=== PATIENT | male | born 1945 | race American Indian/Alaskan Native ===

== ENCOUNTER 2016-11-25 10:39 | Outpatient (CLI) | payer MEDICARE ==
[2016-11-25] MEDS ORDERED: XYLOCAINE TOPICAL 4% TP ONE (15:49)
== END 2016-11-25 10:40 | disposition home or self-care (01) ==
LOC: WOUND 10:39
PROVIDERS: ATTEND Orthopaedic Surgery
DX: I87.311 Chronic venous hypertension (idiopathic) with ulcer of right lower extremity (principal); L97.811 Non-pressure chronic ulcer of other part of right lower leg limited to breakdown of skin; I10 Essential (primary) hypertension; K21.9 Gastro-esophageal reflux disease without esophagitis; M19.90 Unspecified osteoarthritis, unspecified site; Z86.73 Personal history of transient ischemic attack (TIA), and cerebral infarction without residual deficits; Z87.891 Personal history of nicotine dependence
CPT/HCPCS: 99212; G0463

== ENCOUNTER 2016-12-02 11:06 | Outpatient (CLI) | payer MEDICARE | END 2016-12-02 11:07 | disposition home or self-care (01) | LOC: WOUND 11:06 | PROVIDERS: ATTEND Orthopaedic Surgery | DX: I87.311 Chronic venous hypertension (idiopathic) with ulcer of right lower extremity (principal); L97.811 Non-pressure chronic ulcer of other part of right lower leg limited to breakdown of skin; K21.9 Gastro-esophageal reflux disease without esophagitis; M19.90 Unspecified osteoarthritis, unspecified site; Z86.73 Personal history of transient ischemic attack (TIA), and cerebral infarction without residual deficits; Z87.891 Personal history of nicotine dependence ==

== ENCOUNTER 2016-12-10 11:11 | Outpatient (CLI) | payer MEDICARE ==
[2016-12-10] MEDS ORDERED: XYLOCAINE TOPICAL 2% TP ONE ×2 (11:32→14:36)
== END 2016-12-10 11:12 | disposition home or self-care (01) ==
LOC: WOUND 11:11
PROVIDERS: ATTEND Podiatrist
DX: I87.311 Chronic venous hypertension (idiopathic) with ulcer of right lower extremity (principal); L97.912 Non-pressure chronic ulcer of unspecified part of right lower leg with fat layer exposed; G60.9 Hereditary and idiopathic neuropathy, unspecified; B35.1 Tinea unguium; I10 Essential (primary) hypertension; M19.90 Unspecified osteoarthritis, unspecified site; K21.9 Gastro-esophageal reflux disease without esophagitis; Z86.73 Personal history of transient ischemic attack (TIA), and cerebral infarction without residual deficits; Z87.891 Personal history of nicotine dependence
CPT/HCPCS: 29580

== ENCOUNTER 2016-12-16 10:13 | Outpatient (CLI) | payer MEDICARE ==
[2016-12-16] MEDS ORDERED: XYLOCAINE TOPICAL 2% TP ONE ×2 (10:16→11:21)
== END 2016-12-16 10:14 | disposition home or self-care (01) ==
LOC: WOUND 10:13
PROVIDERS: ATTEND Orthopaedic Surgery
DX: I87.311 Chronic venous hypertension (idiopathic) with ulcer of right lower extremity (principal); L97.912 Non-pressure chronic ulcer of unspecified part of right lower leg with fat layer exposed; G60.9 Hereditary and idiopathic neuropathy, unspecified; B35.1 Tinea unguium; K21.9 Gastro-esophageal reflux disease without esophagitis; M19.90 Unspecified osteoarthritis, unspecified site; Z86.73 Personal history of transient ischemic attack (TIA), and cerebral infarction without residual deficits; Z87.891 Personal history of nicotine dependence

== ENCOUNTER 2016-12-23 09:43 | Outpatient (CLI) | payer MEDICARE ==
[2016-12-23] MEDS ORDERED: XYLOCAINE TOPICAL 2% ONE (10:03)
[2016-12-23] MEDS ORDERED: XYLOCAINE TOPICAL 2% TP ONE (14:30)
== END 2016-12-23 09:44 | disposition home or self-care (01) ==
LOC: WOUND 09:43
PROVIDERS: ATTEND Internal Medicine
DX: I87.311 Chronic venous hypertension (idiopathic) with ulcer of right lower extremity (principal); L97.811 Non-pressure chronic ulcer of other part of right lower leg limited to breakdown of skin; G60.9 Hereditary and idiopathic neuropathy, unspecified; B35.1 Tinea unguium; G35 Multiple sclerosis; G40.89 Other seizures; I10 Essential (primary) hypertension; M19.90 Unspecified osteoarthritis, unspecified site; K21.9 Gastro-esophageal reflux disease without esophagitis; Z86.73 Personal history of transient ischemic attack (TIA), and cerebral infarction without residual deficits; Z87.891 Personal history of nicotine dependence

== ENCOUNTER 2016-12-27 11:14 | Outpatient (CLI) | payer MEDICARE ==
[2016-12-27] MEDS ORDERED: XYLOCAINE TOPICAL 2% TP ONE ×2 (11:44→11:54)
== END 2016-12-27 11:15 | disposition home or self-care (01) ==
LOC: WOUND 11:14
PROVIDERS: ATTEND Internal Medicine
DX: I87.311 Chronic venous hypertension (idiopathic) with ulcer of right lower extremity (principal); L97.811 Non-pressure chronic ulcer of other part of right lower leg limited to breakdown of skin; G60.9 Hereditary and idiopathic neuropathy, unspecified; B35.1 Tinea unguium; Z87.891 Personal history of nicotine dependence
CPT/HCPCS: 87075; 87076; 87116; 87186

== ENCOUNTER 2016-12-31 06:53 | Day surgery (SDC) | payer MEDICARE ==
[~2016-12-31 06:53] MED LIST: NACL 0.9% 1000 ML 1,000 ML IV SCH; VANCOMYCIN/NS 1 GM/250 ML 1 GM/250 ML BAG IV NR
[2016-12-31 07:53] LABS: Basophils % (Auto) 0.9 % (0.0-1.8); Eosinophils % (Auto) 5.8 % (0.0-4.3); Hematocrit 39.3 % (35.5-45.6); Hemoglobin 12.7 gm/dl (11.8-15.2); Mean Corpuscular HGB Conc 32 % (32-34); Mean Corpuscular Hemoglobin 29 pg (28-32); Mean Corpuscular Volume 89 fl (84-94); Platelet Count 311 K/mm3 (140-440); Red Blood Count 4.43 M/mm3 (3.65-5.03); Red Cell Distribution Width 17.4 % (13.2-15.2); White Blood Count 6.2 K/mm3 (4.5-11.0)
[2016-12-31 08:02] LABS: Anion Gap 19 mmol/L; Blood Urea Nitrogen 15 mg/dL (9-20); Calcium 9.1 mg/dL (8.4-10.2); Carbon Dioxide 24 mmol/L (22-30); Chloride 102.5 mmol/L (98-107); Glucose 114 mg/dL (75-100); Potassium 4.1 mmol/L (3.6-5.0); Sodium 141 mmol/L (137-145)
[2016-12-31 08:03] LABS: Partial Thromboplastin Time 23.4 Sec. (24.2-36.6)
[2016-12-31] MEDS ORDERED: HEPARIN 10,000 UNITS/10 ML ONE (08:04)
[2016-12-31] MEDS ORDERED: HEPARIN/NS 5000 UNIT/500ML(CATH LAB) 1,000 ML IR ONE (08:05)
[2016-12-31] MEDS: VERSED ONE ×2 (08:43→09:41)
[2016-12-31] MEDS: SUBLIMAZE ONE ×4 (08:43→10:01)
[2016-12-31] MEDS: XYLOCAINE 2% INFILTRATI ONE ×2 (08:45→08:50)
[2016-12-31] MEDS ORDERED: XYLOCAINE 2% INFILTRATI ONE (08:50)
[2016-12-31] MEDS ORDERED: HEPARIN/NS 5000 UNIT/500ML(CATH LAB) 500 ML IR ONE (09:08)
--- NOTE | 2016-12-31 10:28 | Operative Report ---
Operative Report Operative Report: Date of procedure: 12/31/2016 Pre-operative diagnosis: Acute deep venous thrombosis in the right common femoral vein/chronic right leg swelling. Post-operative diagnosis: Same Procedure name(s): 1. Ultrasound-guided access of the right femoral vein. 2. Right lower extremity venogram. 3. IVC filter placement. 4. Intravascular interrogation of the right femoral, common femoral external iliac, common iliac veins. 5. Percutaneous mechanical thrombectomy of the right common femoral and iliac veins using a 8 Vietnamese AngioJet catheter. 6. Balloon angioplasty and stent of the right common iliac vein using 16 x 60 wall stent followed by 16 x 60 balloon. 7. Balloon angioplasty of the external iliac and common femoral veins was a 16 x 60 and 12 by 40 balloon respectively. 8. Radiologic supervision and interpretation. Surgeon: Nickolas Guardado MD, RPVI Budget Analyst: None Anesthesia: Local with IV sedation Findings 1. Acute DVT in the right common femoral and external iliac veins. 2. Partially occluded right external iliac vein stent. 3. 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 4. Resolution of all stenosis in the occlusions at the end of the procedure. 5. IVC filter placement above the iliac confluence and below the renal veins. Specimens: None EBL: Minimal IV fluids: 200 cc Urine output: None Disposition: The recovery Indications: Acute right lower extremity DVT/chronic venous insufficiency. Procedure: Patient was brought to the Production Crew Supervisor and laid on the table in supine position. Bilateral groin and right thigh was prepped and draped in usual sterile fashion. Under ultrasound guidance the right femoral vein was accessed using the micropuncture needle. The micropuncture wire was advanced without resistance. The micropuncture sheath was inserted. The wire was exchanged to a Vargas wire. In the micropuncture sheath was exchanged for an 8 Vietnamese sheath. The wire was directed into the IVC using a angled catheter. They catheter was advanced above the iliac confluence. The venogram confirmed the patent IVC and marked both renal veins. The catheter and sheath were removed and the IVC filter sheath was placed right below the renal veins. The filter was deployed in usual fashion. It was deployed below the renal veins. The filter sheath was removed and a 10 Vietnamese sheath was placed. Patient received 3000 units of heparin. The 8 Vietnamese AngioJet was used to perform the thrombectomy. After the thrombectomy and intravascular ultrasound catheter was placed and it showed no residual clot however there was significant stenosis of both common femoral and common iliac veins. The previously placed stent was widely patent. The common iliac vein was ballooned with a 16 x 60 angioplasty balloon. It was followed by placing 16 by 60 Wall stent in the common iliac vein and post dilated by 18 x 60 balloon. Common femoral and femoral veins were ballooned dilated by 12 x 40 balloon. The resulting venogram showed complete resolution of all the clot, stenosis and occlusions. There was excellent flow through the right side venous system. The sheath was removed and manual pressure was held. Patient tolerated procedure well.
[2016-12-31] MEDS ORDERED: NORCO 5/325 ONE (10:38)
--- NOTE | 2016-12-31 10:39 | Short Stay Summary ---
Short Stay Documentation - History H&P: obtained from office - Allergies and Medications Current Medications: Allergies Penicillins Allergy (Verified 12/14/13 15:58) Itching Home Medications Medication Instructions Recorded Confirmed Last Taken Type Atenolol [Tenormin] 25 mg PO BID 10/14/13 12/31/16 12/31/16 History Gabapentin [Neurontin] 300 mg PO HS 10/14/13 12/31/16 12/30/16 History Simvastatin [Zocor TAB] 40 mg PO QHS 10/14/13 12/31/16 12/30/16 History amLODIPine [Norvasc] 10 mg PO DAILY 10/14/13 12/31/16 12/31/16 History levETIRAcetam [Keppra TAB] 1,000 mg PO BID 10/14/13 12/31/16 12/30/16 History traZODone [Desyrel] 50 mg PO QHS 10/14/13 12/31/16 12/30/16 History Baclofen [Baclofen] 10 mg PO QID 06/21/14 12/31/16 12/30/16 History Dimethyl Fumarate [Tecfidera] 240 mg PO BID 12/31/16 12/31/16 12/30/16 History Methylprednisolone AC, Micro 1,000 gm MC QMONTH 12/31/16 12/31/16 1 Month Ago History [methylPREDNISolone AC Micro] Pantoprazole [Protonix] 40 mg PO QAM 12/31/16 12/31/16 12/30/16 History Active Medications Sodium Chloride (Nacl 0.9% 1000 Ml) 1,000 mls @ 42 mls/hr IV DIRECT ZOE Last Admin: 12/31/16 07:30 Dose: 42 mls/hr Vancomycin HCl (Vancomycin/Ns 1 Gm/250 Ml) 1 gm in 250 mls @ 167.007 mls/hr IV PREOP NR PRN Reason: Protocol Stop: 12/31/16 23:59 Last Admin: 12/31/16 07:58 Dose: 167.007 mls/hr Rivaroxaban (Xarelto) 15 mg PO ONCE ONE PRN Reason: Protocol Stop: 12/31/16 11:01 - Brief post op/procedure progress note Findings: Pre-operative diagnosis: Acute deep venous thrombosis in the right common femoral vein/chronic right leg swelling. Post-operative diagnosis: Same Procedure name(s): 1. Ultrasound-guided access of the right femoral vein. 2. Right lower extremity venogram. 3. IVC filter placement. 4. Intravascular interrogation of the right femoral, common femoral external iliac, common iliac veins. 5. Percutaneous mechanical thrombectomy of the right common femoral and iliac veins using a 8 Palestinian AngioJet catheter. 6. Balloon angioplasty and stent of the right common iliac vein using 16 x 60 wall stent followed by 16 x 60 balloon. 7. Balloon angioplasty of the external iliac and common femoral veins was a 16 x 60 and 12 by 40 balloon respectively. 8. Radiologic supervision and interpretation. Surgeon: Nickolas Guardado MD, RPVI Remote Control Assembler: None Anesthesia: Local with IV sedation Findings 1. Acute DVT in the right common femoral and external iliac veins. 2. Partially occluded right external iliac vein stent. 3. 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 4. Resolution of all stenosis in the occlusions at the end of the procedure. 5. IVC filter placement above the iliac confluence and below the renal veins. Specimens: None EBL: Minimal IV fluids: 200 cc Urine output: None Disposition: The recovery - Disposition Condition at discharge: Good Disposition: DISCHARGED TO HOME OR SELFCARE Short Stay Discharge Plan Activity: advance as tolerated Weight Bearing Status: Full Weight Bearing Diet: regular Wound: open to air, per wound nurse instructions Additional Instructions: Follow up with Dr Guardado in 2 weeks Follow up with: KIRAN RESTREPO MD, PHD [Primary Care Provider] - 7 Days Prescriptions: oxyCODONE /ACETAMINOPHEN [Percocet 5/325] 1 tab PO Q4HR #40 tab Rivaroxaban [Xarelto Starter Pack] 1 each PO BID #1 tab.[id number] Rivaroxaban [Xarelto] 20 mg PO QDAY #30 tab
[2016-12-31] MEDS ORDERED: NORCO 5/325 PO ONE (10:46)
[2016-12-31] MEDS ORDERED: XARELTO PO ONE (11:00)
[2016-12-31] MEDS ORDERED: NACL 0.9% 1000 ML 1,000 ML IV SCH (11:00)
[2016-12-31 12:59] VITALS: BP 151/106
--- NOTE | 2017-01-05 11:42 | Vascular Lab Report ---
MISCELLANEOUS VESSEL IDENTIFICATION: COMMENTS ON THE SCAN: The right femoral vein was identified and under real-time ultrasound guidance was cannulated. IMPRESSION: Successful ultrasound guided vein cannulation.
== END 2016-12-31 13:30 | disposition home or self-care (01) ==
LOC: OPU 06:53
PROVIDERS: ATTEND Surgery Vascular Surgery
DX: I82.411 Acute embolism and thrombosis of right femoral vein (principal); I82.421 Acute embolism and thrombosis of right iliac vein; I10 Essential (primary) hypertension; K21.9 Gastro-esophageal reflux disease without esophagitis; E78.00 Pure hypercholesterolemia, unspecified; F17.210 Nicotine dependence, cigarettes, uncomplicated; F03.90 Unspecified dementia, unspecified severity, without behavioral disturbance, psychotic disturbance, mood disturbance, and anxiety; Z98.890 Other specified postprocedural states; Z80.9 Family history of malignant neoplasm, unspecified; Z83.3 Family history of diabetes mellitus
CPT/HCPCS: 36415; 37187; 37191; 37238; 37248; 37249; 37252; 37253; 75820; 76937; 80048; 85025; 85384; 85610; 85730; 96365; C1725; C1751; C1753; C1769; C1876; C1880; C1894; J1644; J2250; J3010; J3370; J7030; Q9967

== ENCOUNTER 2017-01-03 10:04 | Outpatient (CLI) | payer MEDICARE ==
[2017-01-03] MEDS ORDERED: XYLOCAINE TOPICAL 4% TP ONE ×2 (11:26→11:43)
== END 2017-01-03 10:05 | disposition home or self-care (01) ==
LOC: WOUND 10:04
PROVIDERS: ATTEND Internal Medicine
DX: I87.311 Chronic venous hypertension (idiopathic) with ulcer of right lower extremity (principal); L97.812 Non-pressure chronic ulcer of other part of right lower leg with fat layer exposed; G60.9 Hereditary and idiopathic neuropathy, unspecified; B35.1 Tinea unguium; G35 Multiple sclerosis; G40.89 Other seizures; I82.401 Acute embolism and thrombosis of unspecified deep veins of right lower extremity; K21.9 Gastro-esophageal reflux disease without esophagitis; Z86.718 Personal history of other venous thrombosis and embolism; Z87.891 Personal history of nicotine dependence

== ENCOUNTER 2017-01-10 10:12 | Outpatient (CLI) | payer MEDICARE ==
[2017-01-10] MEDS ORDERED: XYLOCAINE TOPICAL 4% TP ONE ×2 (10:43→11:13)
== END 2017-01-10 10:13 | disposition home or self-care (01) ==
LOC: WOUND 10:12
PROVIDERS: ATTEND Internal Medicine
DX: I87.311 Chronic venous hypertension (idiopathic) with ulcer of right lower extremity (principal); L97.912 Non-pressure chronic ulcer of unspecified part of right lower leg with fat layer exposed; G60.9 Hereditary and idiopathic neuropathy, unspecified; I82.401 Acute embolism and thrombosis of unspecified deep veins of right lower extremity; G35 Multiple sclerosis; M19.90 Unspecified osteoarthritis, unspecified site; K21.9 Gastro-esophageal reflux disease without esophagitis; Z86.73 Personal history of transient ischemic attack (TIA), and cerebral infarction without residual deficits; Z86.718 Personal history of other venous thrombosis and embolism; Z87.891 Personal history of nicotine dependence
CPT/HCPCS: 11055

== ENCOUNTER 2017-01-17 10:09 | Outpatient (CLI) | payer MEDICARE ==
[2017-01-17] MEDS ORDERED: XYLOCAINE TOPICAL 4% TP ONE ×2 (11:02→11:27)
== END 2017-01-17 10:10 | disposition home or self-care (01) ==
LOC: WOUND 10:09
PROVIDERS: ATTEND Internal Medicine
DX: I87.311 Chronic venous hypertension (idiopathic) with ulcer of right lower extremity (principal); L97.812 Non-pressure chronic ulcer of other part of right lower leg with fat layer exposed; B35.1 Tinea unguium; I10 Essential (primary) hypertension; M19.90 Unspecified osteoarthritis, unspecified site; K21.9 Gastro-esophageal reflux disease without esophagitis; G30.9 Alzheimer's disease, unspecified; G40.909 Epilepsy, unspecified, not intractable, without status epilepticus; Z86.718 Personal history of other venous thrombosis and embolism; Z86.73 Personal history of transient ischemic attack (TIA), and cerebral infarction without residual deficits; Z87.891 Personal history of nicotine dependence
CPT/HCPCS: 29581

== ENCOUNTER 2017-01-31 10:40 | Outpatient (CLI) | payer MEDICARE ==
[2017-01-31] MEDS ORDERED: XYLOCAINE TOPICAL 4% TP ONE ×2 (10:43→11:19)
== END 2017-01-31 10:41 | disposition home or self-care (01) ==
LOC: WOUND 10:40
PROVIDERS: ATTEND Internal Medicine
DX: I87.311 Chronic venous hypertension (idiopathic) with ulcer of right lower extremity (principal); L97.811 Non-pressure chronic ulcer of other part of right lower leg limited to breakdown of skin; I82.401 Acute embolism and thrombosis of unspecified deep veins of right lower extremity; G60.9 Hereditary and idiopathic neuropathy, unspecified; B35.1 Tinea unguium; G35 Multiple sclerosis; G40.89 Other seizures; M19.90 Unspecified osteoarthritis, unspecified site; K21.9 Gastro-esophageal reflux disease without esophagitis; Z86.73 Personal history of transient ischemic attack (TIA), and cerebral infarction without residual deficits; Z86.718 Personal history of other venous thrombosis and embolism; Z87.891 Personal history of nicotine dependence
CPT/HCPCS: 29581

== ENCOUNTER 2017-02-02 13:05 | Outpatient (CLI) | payer MEDICARE | END 2017-02-02 13:06 | disposition home or self-care (01) | LOC: WOUND 13:05 | PROVIDERS: ATTEND Internal Medicine | DX: I87.311 Chronic venous hypertension (idiopathic) with ulcer of right lower extremity (principal); L97.811 Non-pressure chronic ulcer of other part of right lower leg limited to breakdown of skin; G60.9 Hereditary and idiopathic neuropathy, unspecified; B35.1 Tinea unguium; I10 Essential (primary) hypertension; K21.9 Gastro-esophageal reflux disease without esophagitis; Z86.73 Personal history of transient ischemic attack (TIA), and cerebral infarction without residual deficits; Z86.718 Personal history of other venous thrombosis and embolism; Z87.891 Personal history of nicotine dependence | CPT/HCPCS: 29581; G0463; 99215 ==

== ENCOUNTER 2017-02-07 10:41 | Outpatient (CLI) | payer MEDICARE ==
[2017-02-07] MEDS ORDERED: XYLOCAINE TOPICAL 4% TP ONE ×2 (11:20→15:27)
== END 2017-02-07 10:42 | disposition home or self-care (01) ==
LOC: WOUND 10:41
PROVIDERS: ATTEND Internal Medicine
DX: I87.311 Chronic venous hypertension (idiopathic) with ulcer of right lower extremity (principal); L97.812 Non-pressure chronic ulcer of other part of right lower leg with fat layer exposed; G60.9 Hereditary and idiopathic neuropathy, unspecified; B35.1 Tinea unguium; G35 Multiple sclerosis; M19.90 Unspecified osteoarthritis, unspecified site; K21.9 Gastro-esophageal reflux disease without esophagitis; G30.9 Alzheimer's disease, unspecified; G40.909 Epilepsy, unspecified, not intractable, without status epilepticus; Z86.73 Personal history of transient ischemic attack (TIA), and cerebral infarction without residual deficits; Z86.718 Personal history of other venous thrombosis and embolism; Z87.891 Personal history of nicotine dependence
CPT/HCPCS: C5271; Q4102; 29581

== ENCOUNTER 2017-02-16 11:29 | Outpatient (CLI) | payer MEDICARE | END 2017-02-16 11:30 | disposition home or self-care (01) | LOC: WOUND 11:29 | PROVIDERS: ATTEND Podiatrist | DX: I87.311 Chronic venous hypertension (idiopathic) with ulcer of right lower extremity (principal); L97.912 Non-pressure chronic ulcer of unspecified part of right lower leg with fat layer exposed; G60.9 Hereditary and idiopathic neuropathy, unspecified; B35.1 Tinea unguium; M19.90 Unspecified osteoarthritis, unspecified site; K21.9 Gastro-esophageal reflux disease without esophagitis; Z86.73 Personal history of transient ischemic attack (TIA), and cerebral infarction without residual deficits; G30.9 Alzheimer's disease, unspecified; F02.80 Dementia in other diseases classified elsewhere, unspecified severity, without behavioral disturbance, psychotic disturbance, mood disturbance, and anxiety; G40.909 Epilepsy, unspecified, not intractable, without status epilepticus; Z86.718 Personal history of other venous thrombosis and embolism; Z87.891 Personal history of nicotine dependence | CPT/HCPCS: 29581; G0463; 99213 ==

== ENCOUNTER 2017-02-21 11:01 | Outpatient (CLI) | payer MEDICARE ==
[~2017-02-21 11:01] MED LIST changes: -NACL 0.9% 1000 ML 1,000 ML IV SCH; -VANCOMYCIN/NS 1 GM/250 ML 1 GM/250 ML BAG IV NR; +XYLOCAINE TOPICAL 2% ONE
[2017-02-21] MEDS ORDERED: XYLOCAINE TOPICAL 2% TP ONE (11:17)
== END 2017-02-21 11:02 | disposition home or self-care (01) ==
LOC: WOUND 11:01
PROVIDERS: ATTEND Internal Medicine
DX: I87.311 Chronic venous hypertension (idiopathic) with ulcer of right lower extremity (principal); L97.812 Non-pressure chronic ulcer of other part of right lower leg with fat layer exposed; G60.9 Hereditary and idiopathic neuropathy, unspecified; B35.1 Tinea unguium; G35 Multiple sclerosis; G40.89 Other seizures; I82.401 Acute embolism and thrombosis of unspecified deep veins of right lower extremity; I10 Essential (primary) hypertension; M19.90 Unspecified osteoarthritis, unspecified site; K21.9 Gastro-esophageal reflux disease without esophagitis; G30.9 Alzheimer's disease, unspecified; F02.80 Dementia in other diseases classified elsewhere, unspecified severity, without behavioral disturbance, psychotic disturbance, mood disturbance, and anxiety; Z86.718 Personal history of other venous thrombosis and embolism; Z86.73 Personal history of transient ischemic attack (TIA), and cerebral infarction without residual deficits; Z87.891 Personal history of nicotine dependence
CPT/HCPCS: C5271; Q4102; 29580

== ENCOUNTER 2017-02-28 10:49 | Outpatient (CLI) | payer MEDICARE ==
[2017-02-28] MEDS ORDERED: XYLOCAINE TOPICAL 2% ONE (11:14)
[2017-02-28] MEDS ORDERED: XYLOCAINE TOPICAL 2% TP ONE (11:42)
== END 2017-02-28 10:50 | disposition home or self-care (01) ==
LOC: WOUND 10:49
PROVIDERS: ATTEND Internal Medicine
DX: I87.311 Chronic venous hypertension (idiopathic) with ulcer of right lower extremity (principal); L97.812 Non-pressure chronic ulcer of other part of right lower leg with fat layer exposed; B35.1 Tinea unguium; G60.9 Hereditary and idiopathic neuropathy, unspecified; G35 Multiple sclerosis; M19.90 Unspecified osteoarthritis, unspecified site; K21.9 Gastro-esophageal reflux disease without esophagitis; G30.9 Alzheimer's disease, unspecified; G40.909 Epilepsy, unspecified, not intractable, without status epilepticus; Z86.73 Personal history of transient ischemic attack (TIA), and cerebral infarction without residual deficits; Z86.718 Personal history of other venous thrombosis and embolism; Z87.891 Personal history of nicotine dependence
CPT/HCPCS: C5271; Q4102

== ENCOUNTER 2017-03-07 10:38 | Outpatient (CLI) | payer MEDICARE ==
[~2017-03-07 10:38] MED LIST changes: -XYLOCAINE TOPICAL 2% ONE; +XYLOCAINE TOPICAL 4% TP ONE
[2017-03-07] MEDS ORDERED: XYLOCAINE TOPICAL 4% TP ONE (11:07)
== END 2017-03-07 10:39 | disposition home or self-care (01) ==
LOC: WOUND 10:38
PROVIDERS: ATTEND Internal Medicine
DX: I87.311 Chronic venous hypertension (idiopathic) with ulcer of right lower extremity (principal); L97.812 Non-pressure chronic ulcer of other part of right lower leg with fat layer exposed; G60.9 Hereditary and idiopathic neuropathy, unspecified; B35.1 Tinea unguium; G35 Multiple sclerosis; G40.89 Other seizures; M19.90 Unspecified osteoarthritis, unspecified site; I82.401 Acute embolism and thrombosis of unspecified deep veins of right lower extremity; K21.9 Gastro-esophageal reflux disease without esophagitis; Z86.73 Personal history of transient ischemic attack (TIA), and cerebral infarction without residual deficits; Z86.718 Personal history of other venous thrombosis and embolism; Z87.891 Personal history of nicotine dependence
CPT/HCPCS: C5271; Q4102

== ENCOUNTER 2017-03-14 10:39 | Outpatient (CLI) | payer MEDICARE ==
[2017-03-14] MEDS ORDERED: XYLOCAINE TOPICAL 4% TP ONE ×2 (11:01→11:23)
== END 2017-03-14 10:40 | disposition home or self-care (01) ==
LOC: WOUND 10:39
PROVIDERS: ATTEND Surgery
DX: I87.311 Chronic venous hypertension (idiopathic) with ulcer of right lower extremity (principal); L97.811 Non-pressure chronic ulcer of other part of right lower leg limited to breakdown of skin; G60.9 Hereditary and idiopathic neuropathy, unspecified; B35.1 Tinea unguium; M19.90 Unspecified osteoarthritis, unspecified site; K21.9 Gastro-esophageal reflux disease without esophagitis; Z86.73 Personal history of transient ischemic attack (TIA), and cerebral infarction without residual deficits; Z86.718 Personal history of other venous thrombosis and embolism; Z87.891 Personal history of nicotine dependence

== ENCOUNTER 2017-03-21 11:03 | Outpatient (CLI) | payer MEDICARE ==
[2017-03-21] MEDS ORDERED: XYLOCAINE TOPICAL 4% TP ONE ×2 (11:58→13:00)
== END 2017-03-21 11:04 | disposition home or self-care (01) ==
LOC: WOUND 11:03
PROVIDERS: ATTEND Internal Medicine
DX: I87.311 Chronic venous hypertension (idiopathic) with ulcer of right lower extremity (principal); L97.812 Non-pressure chronic ulcer of other part of right lower leg with fat layer exposed; G60.9 Hereditary and idiopathic neuropathy, unspecified; B35.1 Tinea unguium; G35 Multiple sclerosis; I82.401 Acute embolism and thrombosis of unspecified deep veins of right lower extremity; I87.2 Venous insufficiency (chronic) (peripheral); K21.9 Gastro-esophageal reflux disease without esophagitis; M19.90 Unspecified osteoarthritis, unspecified site; G30.9 Alzheimer's disease, unspecified; F02.80 Dementia in other diseases classified elsewhere, unspecified severity, without behavioral disturbance, psychotic disturbance, mood disturbance, and anxiety; Z86.73 Personal history of transient ischemic attack (TIA), and cerebral infarction without residual deficits; Z86.718 Personal history of other venous thrombosis and embolism; Z87.891 Personal history of nicotine dependence
CPT/HCPCS: C5271; Q4102; C5273

== ENCOUNTER 2017-03-28 10:40 | Outpatient (CLI) | payer MEDICARE ==
[2017-03-28] MEDS ORDERED: XYLOCAINE TOPICAL 2% TP ONE ×2 (11:01)
== END 2017-03-28 10:41 | disposition home or self-care (01) ==
LOC: WOUND 10:40
PROVIDERS: ATTEND Internal Medicine
DX: I87.311 Chronic venous hypertension (idiopathic) with ulcer of right lower extremity (principal); L97.812 Non-pressure chronic ulcer of other part of right lower leg with fat layer exposed; I82.401 Acute embolism and thrombosis of unspecified deep veins of right lower extremity; K21.9 Gastro-esophageal reflux disease without esophagitis; G60.9 Hereditary and idiopathic neuropathy, unspecified; B35.1 Tinea unguium; G35 Multiple sclerosis; G40.89 Other seizures; M19.90 Unspecified osteoarthritis, unspecified site; G30.9 Alzheimer's disease, unspecified; Z86.73 Personal history of transient ischemic attack (TIA), and cerebral infarction without residual deficits; Z86.718 Personal history of other venous thrombosis and embolism; Z87.891 Personal history of nicotine dependence
CPT/HCPCS: C5271; Q4102; J2930

== ENCOUNTER 2017-04-04 10:48 | Outpatient (CLI) | payer MEDICARE ==
[2017-04-04] MEDS ORDERED: XYLOCAINE TOPICAL 4% TP ONE (11:11)
== END 2017-04-04 10:49 | disposition home or self-care (01) ==
LOC: WOUND 10:48
PROVIDERS: ATTEND Internal Medicine
DX: I87.311 Chronic venous hypertension (idiopathic) with ulcer of right lower extremity (principal); L97.812 Non-pressure chronic ulcer of other part of right lower leg with fat layer exposed; G60.9 Hereditary and idiopathic neuropathy, unspecified; B35.1 Tinea unguium; G35 Multiple sclerosis; G40.89 Other seizures; I82.401 Acute embolism and thrombosis of unspecified deep veins of right lower extremity; K21.9 Gastro-esophageal reflux disease without esophagitis; G30.9 Alzheimer's disease, unspecified; F02.80 Dementia in other diseases classified elsewhere, unspecified severity, without behavioral disturbance, psychotic disturbance, mood disturbance, and anxiety; Z86.73 Personal history of transient ischemic attack (TIA), and cerebral infarction without residual deficits; Z86.718 Personal history of other venous thrombosis and embolism; Z87.891 Personal history of nicotine dependence
CPT/HCPCS: C5271; Q4102

== ENCOUNTER 2017-04-11 11:01 | Outpatient (CLI) | payer MEDICARE ==
[2017-04-11] MEDS ORDERED: XYLOCAINE TOPICAL 4% TP ONE ×2 (11:33→11:39)
== END 2017-04-11 11:02 | disposition home or self-care (01) ==
LOC: WOUND 11:01
PROVIDERS: ATTEND Surgery
DX: I87.311 Chronic venous hypertension (idiopathic) with ulcer of right lower extremity (principal); L97.812 Non-pressure chronic ulcer of other part of right lower leg with fat layer exposed; G60.9 Hereditary and idiopathic neuropathy, unspecified; B35.1 Tinea unguium; M19.90 Unspecified osteoarthritis, unspecified site; K21.9 Gastro-esophageal reflux disease without esophagitis; G30.9 Alzheimer's disease, unspecified; Z86.718 Personal history of other venous thrombosis and embolism; Z86.73 Personal history of transient ischemic attack (TIA), and cerebral infarction without residual deficits; Z87.891 Personal history of nicotine dependence

== ENCOUNTER 2017-04-19 14:14 | Outpatient (CLI) | payer MEDICARE ==
[2017-04-19] MEDS ORDERED: XYLOCAINE TOPICAL 4% TP ONE ×2 (15:21→15:38)
== END 2017-04-19 14:15 | disposition home or self-care (01) ==
LOC: WOUND 14:14
PROVIDERS: ATTEND Surgery
DX: I87.311 Chronic venous hypertension (idiopathic) with ulcer of right lower extremity (principal); L97.812 Non-pressure chronic ulcer of other part of right lower leg with fat layer exposed; G60.9 Hereditary and idiopathic neuropathy, unspecified; B35.1 Tinea unguium; M19.90 Unspecified osteoarthritis, unspecified site; K21.9 Gastro-esophageal reflux disease without esophagitis; G30.9 Alzheimer's disease, unspecified; Z86.73 Personal history of transient ischemic attack (TIA), and cerebral infarction without residual deficits; Z86.718 Personal history of other venous thrombosis and embolism; Z87.891 Personal history of nicotine dependence
CPT/HCPCS: 97597

== ENCOUNTER 2017-04-26 11:15 | Outpatient (CLI) | payer MEDICARE ==
[2017-04-26] MEDS ORDERED: XYLOCAINE TOPICAL 4% TP ONE ×2 (11:40→11:47)
== END 2017-04-26 11:16 | disposition home or self-care (01) ==
LOC: WOUND 11:15
PROVIDERS: ATTEND Surgery
DX: I87.311 Chronic venous hypertension (idiopathic) with ulcer of right lower extremity (principal); L97.812 Non-pressure chronic ulcer of other part of right lower leg with fat layer exposed; G60.9 Hereditary and idiopathic neuropathy, unspecified; B35.1 Tinea unguium; M19.90 Unspecified osteoarthritis, unspecified site; K21.9 Gastro-esophageal reflux disease without esophagitis; G30.9 Alzheimer's disease, unspecified; Z87.891 Personal history of nicotine dependence; Z86.73 Personal history of transient ischemic attack (TIA), and cerebral infarction without residual deficits; Z86.718 Personal history of other venous thrombosis and embolism

== ENCOUNTER 2017-05-02 11:09 | Outpatient (CLI) | payer MEDICARE ==
[2017-05-02] MEDS ORDERED: XYLOCAINE TOPICAL 4% TP ONE (11:49)
== END 2017-05-02 11:10 | disposition home or self-care (01) ==
LOC: WOUND 11:09
PROVIDERS: ATTEND Internal Medicine
DX: I87.311 Chronic venous hypertension (idiopathic) with ulcer of right lower extremity (principal); L97.812 Non-pressure chronic ulcer of other part of right lower leg with fat layer exposed; B35.1 Tinea unguium; G35 Multiple sclerosis; M19.90 Unspecified osteoarthritis, unspecified site; K21.9 Gastro-esophageal reflux disease without esophagitis; G30.9 Alzheimer's disease, unspecified; Z86.73 Personal history of transient ischemic attack (TIA), and cerebral infarction without residual deficits; Z86.718 Personal history of other venous thrombosis and embolism; Z87.891 Personal history of nicotine dependence
CPT/HCPCS: C5271; Q4102

== ENCOUNTER 2017-05-09 10:56 | Outpatient (CLI) | payer MEDICARE ==
[2017-05-09] MEDS ORDERED: XYLOCAINE TOPICAL 4% TP ONE ×2 (11:30→11:31)
[2017-05-09] MEDS ORDERED: SODIUM CHLORIDE FLUSH SYRINGE 10 ML IV ONE (17:04)
== END 2017-05-09 10:57 | disposition home or self-care (01) ==
LOC: WOUND 10:56
PROVIDERS: ATTEND Internal Medicine
DX: I87.311 Chronic venous hypertension (idiopathic) with ulcer of right lower extremity (principal); L97.812 Non-pressure chronic ulcer of other part of right lower leg with fat layer exposed; I82.401 Acute embolism and thrombosis of unspecified deep veins of right lower extremity; K21.9 Gastro-esophageal reflux disease without esophagitis; G30.9 Alzheimer's disease, unspecified; G60.9 Hereditary and idiopathic neuropathy, unspecified; B35.1 Tinea unguium; G35 Multiple sclerosis; M19.90 Unspecified osteoarthritis, unspecified site; I10 Essential (primary) hypertension; Z86.73 Personal history of transient ischemic attack (TIA), and cerebral infarction without residual deficits; Z86.718 Personal history of other venous thrombosis and embolism; Z87.891 Personal history of nicotine dependence
CPT/HCPCS: C5271; Q4102

== ENCOUNTER 2017-05-16 11:10 | Outpatient (CLI) | payer MEDICARE ==
[2017-05-16] MEDS ORDERED: XYLOCAINE TOPICAL 4% TP ONE ×2 (11:45)
== END 2017-05-16 11:11 | disposition home or self-care (01) ==
LOC: WOUND 11:10
PROVIDERS: ATTEND Internal Medicine
DX: I87.311 Chronic venous hypertension (idiopathic) with ulcer of right lower extremity (principal); L97.812 Non-pressure chronic ulcer of other part of right lower leg with fat layer exposed; G60.9 Hereditary and idiopathic neuropathy, unspecified; B35.1 Tinea unguium; G35 Multiple sclerosis; I82.401 Acute embolism and thrombosis of unspecified deep veins of right lower extremity; K21.9 Gastro-esophageal reflux disease without esophagitis; L84 Corns and callosities; G30.9 Alzheimer's disease, unspecified; M19.90 Unspecified osteoarthritis, unspecified site; F02.80 Dementia in other diseases classified elsewhere, unspecified severity, without behavioral disturbance, psychotic disturbance, mood disturbance, and anxiety; Z86.718 Personal history of other venous thrombosis and embolism; Z86.73 Personal history of transient ischemic attack (TIA), and cerebral infarction without residual deficits; Z87.891 Personal history of nicotine dependence
CPT/HCPCS: C5271; Q4102

== ENCOUNTER 2017-05-23 12:10 | Outpatient (CLI) | payer MEDICARE ==
[2017-05-23] MEDS ORDERED: XYLOCAINE TOPICAL 4% TP ONE ×2 (12:24→12:25)
== END 2017-05-23 12:11 | disposition home or self-care (01) ==
LOC: WOUND 12:10
PROVIDERS: ATTEND Internal Medicine
DX: I87.311 Chronic venous hypertension (idiopathic) with ulcer of right lower extremity (principal); L97.812 Non-pressure chronic ulcer of other part of right lower leg with fat layer exposed; G60.9 Hereditary and idiopathic neuropathy, unspecified; B35.1 Tinea unguium; G35 Multiple sclerosis; G40.89 Other seizures; M19.90 Unspecified osteoarthritis, unspecified site; K21.9 Gastro-esophageal reflux disease without esophagitis; G30.9 Alzheimer's disease, unspecified; Z86.718 Personal history of other venous thrombosis and embolism; Z86.73 Personal history of transient ischemic attack (TIA), and cerebral infarction without residual deficits; Z87.891 Personal history of nicotine dependence
CPT/HCPCS: C5271; Q4102

== ENCOUNTER 2017-05-30 11:17 | Outpatient (CLI) | payer MEDICARE ==
[2017-05-30] MEDS ORDERED: XYLOCAINE TOPICAL 4% TP ONE ×2 (11:56→12:14)
== END 2017-05-30 11:18 | disposition home or self-care (01) ==
LOC: WOUND 11:17
PROVIDERS: ATTEND Internal Medicine
DX: I87.311 Chronic venous hypertension (idiopathic) with ulcer of right lower extremity (principal); L97.812 Non-pressure chronic ulcer of other part of right lower leg with fat layer exposed; B35.1 Tinea unguium; G35 Multiple sclerosis; M19.90 Unspecified osteoarthritis, unspecified site; K21.9 Gastro-esophageal reflux disease without esophagitis; G30.9 Alzheimer's disease, unspecified; Z86.718 Personal history of other venous thrombosis and embolism; Z86.73 Personal history of transient ischemic attack (TIA), and cerebral infarction without residual deficits; Z87.891 Personal history of nicotine dependence

== ENCOUNTER 2017-06-06 11:12 | Outpatient (CLI) | payer MEDICARE ==
[2017-06-06] MEDS ORDERED: XYLOCAINE TOPICAL 4% TP ONE (11:41)
== END 2017-06-06 11:13 | disposition home or self-care (01) ==
LOC: WOUND 11:12
PROVIDERS: ATTEND Internal Medicine
DX: I87.311 Chronic venous hypertension (idiopathic) with ulcer of right lower extremity (principal); L97.812 Non-pressure chronic ulcer of other part of right lower leg with fat layer exposed; G60.9 Hereditary and idiopathic neuropathy, unspecified; B35.1 Tinea unguium; M19.90 Unspecified osteoarthritis, unspecified site; K21.9 Gastro-esophageal reflux disease without esophagitis; G30.9 Alzheimer's disease, unspecified; Z86.73 Personal history of transient ischemic attack (TIA), and cerebral infarction without residual deficits; Z86.718 Personal history of other venous thrombosis and embolism; Z87.891 Personal history of nicotine dependence

== ENCOUNTER 2017-06-13 13:08 | Outpatient (CLI) | payer MEDICARE ==
[2017-06-13] MEDS ORDERED: XYLOCAINE TOPICAL 4% TP ONE ×2 (13:40→13:46)
== END 2017-06-13 13:09 | disposition home or self-care (01) ==
LOC: WOUND 13:08
PROVIDERS: ATTEND Internal Medicine
DX: I87.311 Chronic venous hypertension (idiopathic) with ulcer of right lower extremity (principal); L97.812 Non-pressure chronic ulcer of other part of right lower leg with fat layer exposed; G60.9 Hereditary and idiopathic neuropathy, unspecified; B35.1 Tinea unguium; G35 Multiple sclerosis; K21.9 Gastro-esophageal reflux disease without esophagitis; M19.90 Unspecified osteoarthritis, unspecified site; G30.9 Alzheimer's disease, unspecified; Z86.73 Personal history of transient ischemic attack (TIA), and cerebral infarction without residual deficits; Z86.718 Personal history of other venous thrombosis and embolism; Z87.891 Personal history of nicotine dependence

== ENCOUNTER 2017-06-20 13:03 | Outpatient (CLI) | payer MEDICARE ==
[2017-06-20] MEDS ORDERED: XYLOCAINE TOPICAL 4% TP ONE ×2 (13:20→13:27)
[2017-06-20] MEDS ORDERED: AD OINTMENT TP ONE (13:47)
== END 2017-06-20 13:04 | disposition home or self-care (01) ==
LOC: WOUND 13:03
PROVIDERS: ATTEND Internal Medicine
DX: I87.311 Chronic venous hypertension (idiopathic) with ulcer of right lower extremity (principal); L97.812 Non-pressure chronic ulcer of other part of right lower leg with fat layer exposed; G60.9 Hereditary and idiopathic neuropathy, unspecified; B35.1 Tinea unguium; G35 Multiple sclerosis; G40.89 Other seizures; I82.401 Acute embolism and thrombosis of unspecified deep veins of right lower extremity; I87.2 Venous insufficiency (chronic) (peripheral); M19.90 Unspecified osteoarthritis, unspecified site; K21.9 Gastro-esophageal reflux disease without esophagitis; G30.9 Alzheimer's disease, unspecified; F02.80 Dementia in other diseases classified elsewhere, unspecified severity, without behavioral disturbance, psychotic disturbance, mood disturbance, and anxiety; Z86.718 Personal history of other venous thrombosis and embolism; Z86.73 Personal history of transient ischemic attack (TIA), and cerebral infarction without residual deficits; Z87.891 Personal history of nicotine dependence
CPT/HCPCS: A6250

== ENCOUNTER 2017-06-27 11:22 | Outpatient (CLI) | payer MEDICARE ==
[2017-06-27] MEDS ORDERED: XYLOCAINE TOPICAL 4% TP ONE ×2 (11:31→11:45)
== END 2017-06-27 11:23 | disposition home or self-care (01) ==
LOC: WOUND 11:22
PROVIDERS: ATTEND Internal Medicine
DX: I87.311 Chronic venous hypertension (idiopathic) with ulcer of right lower extremity (principal); L97.812 Non-pressure chronic ulcer of other part of right lower leg with fat layer exposed; B35.1 Tinea unguium; G35 Multiple sclerosis; M19.90 Unspecified osteoarthritis, unspecified site; K21.9 Gastro-esophageal reflux disease without esophagitis; G30.9 Alzheimer's disease, unspecified; Z86.718 Personal history of other venous thrombosis and embolism; Z86.73 Personal history of transient ischemic attack (TIA), and cerebral infarction without residual deficits; Z87.891 Personal history of nicotine dependence

== ENCOUNTER 2017-07-04 11:10 | Outpatient (CLI) | payer MEDICARE ==
[2017-07-04] MEDS ORDERED: XYLOCAINE TOPICAL 4% TP ONE (11:18)
== END 2017-07-04 11:11 | disposition home or self-care (01) ==
LOC: WOUND 11:10
PROVIDERS: ATTEND Internal Medicine
DX: I87.311 Chronic venous hypertension (idiopathic) with ulcer of right lower extremity (principal); L97.812 Non-pressure chronic ulcer of other part of right lower leg with fat layer exposed; G60.9 Hereditary and idiopathic neuropathy, unspecified; B35.1 Tinea unguium; G35 Multiple sclerosis; M19.90 Unspecified osteoarthritis, unspecified site; K21.9 Gastro-esophageal reflux disease without esophagitis; G30.9 Alzheimer's disease, unspecified; Z86.73 Personal history of transient ischemic attack (TIA), and cerebral infarction without residual deficits; Z86.718 Personal history of other venous thrombosis and embolism; Z87.891 Personal history of nicotine dependence

== ENCOUNTER 2017-07-11 10:39 | Outpatient (CLI) | payer MEDICARE ==
[2017-07-11] MEDS ORDERED: XYLOCAINE TOPICAL 4% TP ONE ×2 (10:40→10:45)
== END 2017-07-11 10:40 | disposition home or self-care (01) ==
LOC: WOUND 10:39
PROVIDERS: ATTEND Internal Medicine
DX: I87.311 Chronic venous hypertension (idiopathic) with ulcer of right lower extremity (principal); L97.812 Non-pressure chronic ulcer of other part of right lower leg with fat layer exposed; G60.9 Hereditary and idiopathic neuropathy, unspecified; B35.1 Tinea unguium; G35 Multiple sclerosis; G40.89 Other seizures; I82.401 Acute embolism and thrombosis of unspecified deep veins of right lower extremity; M19.90 Unspecified osteoarthritis, unspecified site; K21.9 Gastro-esophageal reflux disease without esophagitis; G30.9 Alzheimer's disease, unspecified; F02.80 Dementia in other diseases classified elsewhere, unspecified severity, without behavioral disturbance, psychotic disturbance, mood disturbance, and anxiety; Z87.891 Personal history of nicotine dependence; Z86.73 Personal history of transient ischemic attack (TIA), and cerebral infarction without residual deficits; Z86.718 Personal history of other venous thrombosis and embolism

== ENCOUNTER 2017-07-18 11:09 | Outpatient (CLI) | payer MEDICARE ==
[2017-07-18] MEDS ORDERED: XYLOCAINE TOPICAL 4% TP ONE ×2 (11:20→11:23)
== END 2017-07-18 11:10 | disposition home or self-care (01) ==
LOC: WOUND 11:09
PROVIDERS: ATTEND Internal Medicine
DX: I87.311 Chronic venous hypertension (idiopathic) with ulcer of right lower extremity (principal); L97.812 Non-pressure chronic ulcer of other part of right lower leg with fat layer exposed; G60.9 Hereditary and idiopathic neuropathy, unspecified; B35.1 Tinea unguium; M19.90 Unspecified osteoarthritis, unspecified site; K21.9 Gastro-esophageal reflux disease without esophagitis; Z86.73 Personal history of transient ischemic attack (TIA), and cerebral infarction without residual deficits; Z86.718 Personal history of other venous thrombosis and embolism; Z87.891 Personal history of nicotine dependence

== ENCOUNTER 2017-07-26 13:34 | Outpatient (CLI) | payer MEDICARE ==
[2017-07-26] MEDS ORDERED: XYLOCAINE TOPICAL 4% TP ONE ×2 (14:32→15:00)
== END 2017-07-26 13:35 | disposition home or self-care (01) ==
LOC: WOUND 13:34
PROVIDERS: ATTEND Surgery
DX: I87.311 Chronic venous hypertension (idiopathic) with ulcer of right lower extremity (principal); L97.812 Non-pressure chronic ulcer of other part of right lower leg with fat layer exposed; M19.90 Unspecified osteoarthritis, unspecified site; K21.9 Gastro-esophageal reflux disease without esophagitis; G30.9 Alzheimer's disease, unspecified; F02.80 Dementia in other diseases classified elsewhere, unspecified severity, without behavioral disturbance, psychotic disturbance, mood disturbance, and anxiety; Z86.73 Personal history of transient ischemic attack (TIA), and cerebral infarction without residual deficits; Z86.718 Personal history of other venous thrombosis and embolism; Z87.891 Personal history of nicotine dependence

== ENCOUNTER 2017-08-08 11:26 | Outpatient (CLI) | payer MEDICARE ==
[2017-08-08] MEDS ORDERED: XYLOCAINE TOPICAL 4% TP ONE ×2 (12:38→13:30)
[2017-08-08] MEDS ORDERED: SILVER NITRATE TP ONE (13:13)
== END 2017-08-08 11:27 | disposition home or self-care (01) ==
LOC: WOUND 11:26
PROVIDERS: ATTEND Internal Medicine
DX: I87.311 Chronic venous hypertension (idiopathic) with ulcer of right lower extremity (principal); L97.811 Non-pressure chronic ulcer of other part of right lower leg limited to breakdown of skin; G60.9 Hereditary and idiopathic neuropathy, unspecified; B35.1 Tinea unguium; G35 Multiple sclerosis; G40.89 Other seizures; M19.90 Unspecified osteoarthritis, unspecified site; K21.9 Gastro-esophageal reflux disease without esophagitis; Z86.73 Personal history of transient ischemic attack (TIA), and cerebral infarction without residual deficits; Z86.718 Personal history of other venous thrombosis and embolism; Z87.891 Personal history of nicotine dependence

== ENCOUNTER 2017-08-15 11:09 | Outpatient (CLI) | payer MEDICARE ==
[2017-08-15] MEDS ORDERED: XYLOCAINE TOPICAL 4% TP ONE ×2 (12:10→12:13)
== END 2017-08-15 11:10 | disposition home or self-care (01) ==
LOC: WOUND 11:09
PROVIDERS: ATTEND Internal Medicine
DX: I87.311 Chronic venous hypertension (idiopathic) with ulcer of right lower extremity (principal); L97.812 Non-pressure chronic ulcer of other part of right lower leg with fat layer exposed; G60.9 Hereditary and idiopathic neuropathy, unspecified; B35.1 Tinea unguium; G35 Multiple sclerosis; I10 Essential (primary) hypertension; M19.90 Unspecified osteoarthritis, unspecified site; K21.9 Gastro-esophageal reflux disease without esophagitis; Z86.73 Personal history of transient ischemic attack (TIA), and cerebral infarction without residual deficits; G30.9 Alzheimer's disease, unspecified; Z86.718 Personal history of other venous thrombosis and embolism; Z87.891 Personal history of nicotine dependence
CPT/HCPCS: 15271

== ENCOUNTER 2017-08-22 11:15 | Outpatient (CLI) | payer MEDICARE ==
[2017-08-22] MEDS ORDERED: XYLOCAINE TOPICAL 4% TP ONE ×2 (11:28→16:20)
== END 2017-08-22 11:16 | disposition home or self-care (01) ==
LOC: WOUND 11:15
PROVIDERS: ATTEND Internal Medicine
DX: I87.311 Chronic venous hypertension (idiopathic) with ulcer of right lower extremity (principal); L97.812 Non-pressure chronic ulcer of other part of right lower leg with fat layer exposed; G60.9 Hereditary and idiopathic neuropathy, unspecified; B35.1 Tinea unguium; K21.9 Gastro-esophageal reflux disease without esophagitis; G30.9 Alzheimer's disease, unspecified; Z86.73 Personal history of transient ischemic attack (TIA), and cerebral infarction without residual deficits; Z86.718 Personal history of other venous thrombosis and embolism
CPT/HCPCS: 15271; Q4131; Q4102

== ENCOUNTER 2017-08-29 11:04 | Outpatient (CLI) | payer MEDICARE ==
[2017-08-29] MEDS ORDERED: XYLOCAINE TOPICAL 2% ONE (11:27)
[2017-08-29] MEDS ORDERED: XYLOCAINE TOPICAL 2% TP ONE (11:33)
== END 2017-08-29 11:05 | disposition home or self-care (01) ==
LOC: WOUND 11:04
PROVIDERS: ATTEND Internal Medicine
DX: I87.311 Chronic venous hypertension (idiopathic) with ulcer of right lower extremity (principal); L97.812 Non-pressure chronic ulcer of other part of right lower leg with fat layer exposed; G60.9 Hereditary and idiopathic neuropathy, unspecified; B35.1 Tinea unguium; M19.90 Unspecified osteoarthritis, unspecified site; K21.9 Gastro-esophageal reflux disease without esophagitis; Z86.73 Personal history of transient ischemic attack (TIA), and cerebral infarction without residual deficits; Z86.718 Personal history of other venous thrombosis and embolism; Z87.891 Personal history of nicotine dependence
CPT/HCPCS: 15271; Q4131

== ENCOUNTER 2017-09-05 11:00 | Outpatient (CLI) | payer MEDICARE ==
[2017-09-05] MEDS ORDERED: XYLOCAINE TOPICAL 2% ONE (11:34)
[2017-09-05] MEDS ORDERED: XYLOCAINE TOPICAL 2% TP ONE (11:37)
== END 2017-09-05 11:01 | disposition home or self-care (01) ==
LOC: WOUND 11:00
PROVIDERS: ATTEND Internal Medicine
DX: I87.311 Chronic venous hypertension (idiopathic) with ulcer of right lower extremity (principal); L97.811 Non-pressure chronic ulcer of other part of right lower leg limited to breakdown of skin; G60.9 Hereditary and idiopathic neuropathy, unspecified; B35.1 Tinea unguium; G35 Multiple sclerosis; G40.89 Other seizures; M19.90 Unspecified osteoarthritis, unspecified site; K21.9 Gastro-esophageal reflux disease without esophagitis; Z86.718 Personal history of other venous thrombosis and embolism; Z87.891 Personal history of nicotine dependence

== ENCOUNTER 2017-09-09 13:07 | Outpatient (CLI) | payer MEDICARE ==
--- NOTE | 2017-09-09 13:50 | XRay Report ---
Single view abdomen: History: Abdominal pain. Findings: Gaseous colon with stool in colon. No bowel distention or wall thickening. Right iliac vascular stent. Impression: No bowel distention.
== END 2017-09-09 13:08 | disposition home or self-care (01) ==
LOC: SPVIMAG 13:07
DX: R10.9 Unspecified abdominal pain (principal); I10 Essential (primary) hypertension; E78.00 Pure hypercholesterolemia, unspecified; Z87.891 Personal history of nicotine dependence; Z79.899 Other long term (current) drug therapy
CPT/HCPCS: 74000

== ENCOUNTER 2017-09-12 13:18 | Outpatient (CLI) | payer MEDICARE ==
[2017-09-12] MEDS ORDERED: XYLOCAINE TOPICAL 4% TP ONE (14:05)
== END 2017-09-12 13:19 | disposition home or self-care (01) ==
LOC: WOUND 13:18
PROVIDERS: ATTEND Internal Medicine
DX: I87.311 Chronic venous hypertension (idiopathic) with ulcer of right lower extremity (principal); L97.812 Non-pressure chronic ulcer of other part of right lower leg with fat layer exposed; G60.9 Hereditary and idiopathic neuropathy, unspecified; B35.1 Tinea unguium; M19.90 Unspecified osteoarthritis, unspecified site; K21.9 Gastro-esophageal reflux disease without esophagitis; G30.9 Alzheimer's disease, unspecified; Z86.73 Personal history of transient ischemic attack (TIA), and cerebral infarction without residual deficits; Z86.718 Personal history of other venous thrombosis and embolism; Z87.891 Personal history of nicotine dependence

== ENCOUNTER 2017-09-19 14:00 | Outpatient (CLI) | payer MEDICARE ==
[2017-09-19] MEDS ORDERED: XYLOCAINE TOPICAL 4% TP ONE ×2 (14:12→14:37)
== END 2017-09-19 14:01 | disposition home or self-care (01) ==
LOC: WOUND 14:00
PROVIDERS: ATTEND Internal Medicine
DX: I87.311 Chronic venous hypertension (idiopathic) with ulcer of right lower extremity (principal); L97.812 Non-pressure chronic ulcer of other part of right lower leg with fat layer exposed; G60.9 Hereditary and idiopathic neuropathy, unspecified; B35.1 Tinea unguium; K21.9 Gastro-esophageal reflux disease without esophagitis; M19.90 Unspecified osteoarthritis, unspecified site; G30.9 Alzheimer's disease, unspecified; Z86.718 Personal history of other venous thrombosis and embolism; Z86.73 Personal history of transient ischemic attack (TIA), and cerebral infarction without residual deficits; Z87.891 Personal history of nicotine dependence
CPT/HCPCS: 29581

== ENCOUNTER 2017-09-26 13:30 | Outpatient (CLI) | payer MEDICARE ==
[2017-09-26] MEDS ORDERED: XYLOCAINE TOPICAL 4% TP ONE ×2 (13:37→14:02)
== END 2017-09-26 13:31 | disposition home or self-care (01) ==
LOC: WOUND 13:30
PROVIDERS: ATTEND Internal Medicine
DX: I87.311 Chronic venous hypertension (idiopathic) with ulcer of right lower extremity (principal); L97.812 Non-pressure chronic ulcer of other part of right lower leg with fat layer exposed; G60.9 Hereditary and idiopathic neuropathy, unspecified; B35.1 Tinea unguium; G35 Multiple sclerosis; M19.90 Unspecified osteoarthritis, unspecified site; K21.9 Gastro-esophageal reflux disease without esophagitis; G30.9 Alzheimer's disease, unspecified; I10 Essential (primary) hypertension; Z86.718 Personal history of other venous thrombosis and embolism; Z86.73 Personal history of transient ischemic attack (TIA), and cerebral infarction without residual deficits
CPT/HCPCS: 29580

== ENCOUNTER 2017-10-03 13:33 | Outpatient (CLI) | payer MEDICARE ==
[2017-10-03] MEDS ORDERED: XYLOCAINE TOPICAL 2% ONE (14:19)
[2017-10-03] MEDS ORDERED: XYLOCAINE TOPICAL 4% TP ONE ×2 (14:19→14:24)
[2017-10-03] MEDS ORDERED: XYLOCAINE TOPICAL 2% TP ONE (14:24)
== END 2017-10-03 13:34 | disposition home or self-care (01) ==
LOC: WOUND 13:33
PROVIDERS: ATTEND Internal Medicine
DX: L97.811 Non-pressure chronic ulcer of other part of right lower leg limited to breakdown of skin (principal); I87.311 Chronic venous hypertension (idiopathic) with ulcer of right lower extremity; L97.812 Non-pressure chronic ulcer of other part of right lower leg with fat layer exposed; G60.9 Hereditary and idiopathic neuropathy, unspecified; B35.1 Tinea unguium; G35 Multiple sclerosis; K21.9 Gastro-esophageal reflux disease without esophagitis; G30.9 Alzheimer's disease, unspecified; F02.80 Dementia in other diseases classified elsewhere, unspecified severity, without behavioral disturbance, psychotic disturbance, mood disturbance, and anxiety; I10 Essential (primary) hypertension; Z86.718 Personal history of other venous thrombosis and embolism; Z86.73 Personal history of transient ischemic attack (TIA), and cerebral infarction without residual deficits; Z87.891 Personal history of nicotine dependence

== ENCOUNTER 2017-10-10 12:46 | Outpatient (CLI) | payer MEDICARE ==
[2017-10-10] MEDS ORDERED: XYLOCAINE TOPICAL 4% TP ONE (14:06)
[2017-10-11] MEDS ORDERED: XYLOCAINE TOPICAL 4% TP ONE (09:24)
== END 2017-10-10 12:47 | disposition home or self-care (01) ==
LOC: WOUND 12:46
PROVIDERS: ATTEND Internal Medicine
DX: I87.311 Chronic venous hypertension (idiopathic) with ulcer of right lower extremity (principal); L97.812 Non-pressure chronic ulcer of other part of right lower leg with fat layer exposed; G60.9 Hereditary and idiopathic neuropathy, unspecified; B35.1 Tinea unguium; K21.9 Gastro-esophageal reflux disease without esophagitis; G30.9 Alzheimer's disease, unspecified; M19.90 Unspecified osteoarthritis, unspecified site; Z86.73 Personal history of transient ischemic attack (TIA), and cerebral infarction without residual deficits; Z86.718 Personal history of other venous thrombosis and embolism; Z87.891 Personal history of nicotine dependence
CPT/HCPCS: 29581

== ENCOUNTER 2017-10-17 12:10 | Outpatient (CLI) | payer MEDICARE ==
[2017-10-17] MEDS ORDERED: XYLOCAINE TOPICAL 2% ONE (14:02)
[2017-10-17] MEDS ORDERED: XYLOCAINE TOPICAL 2% TP ONE (14:03)
== END 2017-10-17 12:11 | disposition home or self-care (01) ==
LOC: WOUND 12:10
PROVIDERS: ATTEND Internal Medicine
DX: I87.311 Chronic venous hypertension (idiopathic) with ulcer of right lower extremity (principal); L97.812 Non-pressure chronic ulcer of other part of right lower leg with fat layer exposed; G60.9 Hereditary and idiopathic neuropathy, unspecified; B35.1 Tinea unguium; K21.9 Gastro-esophageal reflux disease without esophagitis; M19.90 Unspecified osteoarthritis, unspecified site; G30.9 Alzheimer's disease, unspecified; Z86.718 Personal history of other venous thrombosis and embolism; Z86.73 Personal history of transient ischemic attack (TIA), and cerebral infarction without residual deficits; Z87.891 Personal history of nicotine dependence

== ENCOUNTER 2017-10-24 12:12 | Outpatient (CLI) | payer MEDICARE ==
[2017-10-24] MEDS ORDERED: XYLOCAINE TOPICAL 2% 30ML TP ONE (14:00)
[2017-10-24] MEDS ORDERED: XYLOCAINE TOPICAL 2% 5ML ONE (14:04)
== END 2017-10-24 12:13 | disposition home or self-care (01) ==
LOC: WOUND 12:12
PROVIDERS: ATTEND Surgery
DX: I87.311 Chronic venous hypertension (idiopathic) with ulcer of right lower extremity (principal); L97.812 Non-pressure chronic ulcer of other part of right lower leg with fat layer exposed; G60.9 Hereditary and idiopathic neuropathy, unspecified; B35.1 Tinea unguium; M19.90 Unspecified osteoarthritis, unspecified site; K21.9 Gastro-esophageal reflux disease without esophagitis; G30.9 Alzheimer's disease, unspecified; Z86.73 Personal history of transient ischemic attack (TIA), and cerebral infarction without residual deficits; Z86.718 Personal history of other venous thrombosis and embolism; Z87.891 Personal history of nicotine dependence

== ENCOUNTER 2017-10-31 13:09 | Outpatient (CLI) | payer MEDICARE ==
[2017-10-31] MEDS ORDERED: XYLOCAINE TOPICAL 4% TP ONE (13:51)
== END 2017-10-31 13:10 | disposition home or self-care (01) ==
LOC: WOUND 13:09
PROVIDERS: ATTEND Internal Medicine
DX: I87.311 Chronic venous hypertension (idiopathic) with ulcer of right lower extremity (principal); L97.812 Non-pressure chronic ulcer of other part of right lower leg with fat layer exposed; G60.9 Hereditary and idiopathic neuropathy, unspecified; B35.1 Tinea unguium; M19.90 Unspecified osteoarthritis, unspecified site; G30.9 Alzheimer's disease, unspecified; Z86.73 Personal history of transient ischemic attack (TIA), and cerebral infarction without residual deficits; Z86.718 Personal history of other venous thrombosis and embolism; Z87.891 Personal history of nicotine dependence
CPT/HCPCS: 15277; Q4131

== ENCOUNTER 2017-11-07 13:23 | Outpatient (CLI) | payer MEDICARE ==
[2017-11-07] MEDS ORDERED: XYLOCAINE TOPICAL 4% TP ONE (15:00)
== END 2017-11-07 13:24 | disposition home or self-care (01) ==
LOC: WOUND 13:23
PROVIDERS: ATTEND Internal Medicine
DX: I87.311 Chronic venous hypertension (idiopathic) with ulcer of right lower extremity (principal); L97.812 Non-pressure chronic ulcer of other part of right lower leg with fat layer exposed; B35.1 Tinea unguium; K21.9 Gastro-esophageal reflux disease without esophagitis; G30.9 Alzheimer's disease, unspecified; M19.90 Unspecified osteoarthritis, unspecified site; Z86.73 Personal history of transient ischemic attack (TIA), and cerebral infarction without residual deficits; Z86.718 Personal history of other venous thrombosis and embolism; Z87.891 Personal history of nicotine dependence

== ENCOUNTER 2017-11-15 13:39 | Outpatient (CLI) | payer MEDICARE ==
[2017-11-15] MEDS ORDERED: XYLOCAINE TOPICAL 4% TP ONE (14:38)
[2017-11-29] MEDS ORDERED: XYLOCAINE TOPICAL 4% TP ONE (08:16)
== END 2017-11-15 13:40 | disposition home or self-care (01) ==
LOC: WOUND 13:39
PROVIDERS: ATTEND Internal Medicine
DX: I87.311 Chronic venous hypertension (idiopathic) with ulcer of right lower extremity (principal); L97.812 Non-pressure chronic ulcer of other part of right lower leg with fat layer exposed; B35.1 Tinea unguium; M19.90 Unspecified osteoarthritis, unspecified site; K21.9 Gastro-esophageal reflux disease without esophagitis; G30.9 Alzheimer's disease, unspecified; Z86.73 Personal history of transient ischemic attack (TIA), and cerebral infarction without residual deficits; Z86.718 Personal history of other venous thrombosis and embolism; Z87.891 Personal history of nicotine dependence

== ENCOUNTER 2017-11-22 13:29 | Outpatient (CLI) | payer MEDICARE ==
[2017-11-22] MEDS ORDERED: XYLOCAINE TOPICAL 4% TP ONE (13:51)
== END 2017-11-22 13:30 | disposition home or self-care (01) ==
LOC: WOUND 13:29
PROVIDERS: ATTEND Surgery
DX: I87.311 Chronic venous hypertension (idiopathic) with ulcer of right lower extremity (principal); L97.812 Non-pressure chronic ulcer of other part of right lower leg with fat layer exposed; B35.1 Tinea unguium; G60.9 Hereditary and idiopathic neuropathy, unspecified; M19.90 Unspecified osteoarthritis, unspecified site; K21.9 Gastro-esophageal reflux disease without esophagitis; G30.9 Alzheimer's disease, unspecified; Z86.73 Personal history of transient ischemic attack (TIA), and cerebral infarction without residual deficits; Z86.718 Personal history of other venous thrombosis and embolism; Z87.891 Personal history of nicotine dependence

== ENCOUNTER 2017-11-28 13:25 | Outpatient (CLI) | payer MEDICARE ==
[2017-11-28] MEDS ORDERED: XYLOCAINE TOPICAL 4% TP ONE ×2 (13:32→13:38)
== END 2017-11-28 13:26 | disposition home or self-care (01) ==
LOC: WOUND 13:25
PROVIDERS: ATTEND Internal Medicine
DX: I87.311 Chronic venous hypertension (idiopathic) with ulcer of right lower extremity (principal); L97.812 Non-pressure chronic ulcer of other part of right lower leg with fat layer exposed; I82.401 Acute embolism and thrombosis of unspecified deep veins of right lower extremity; G60.9 Hereditary and idiopathic neuropathy, unspecified; B35.1 Tinea unguium; G35 Multiple sclerosis; K21.9 Gastro-esophageal reflux disease without esophagitis; K57.92 Diverticulitis of intestine, part unspecified, without perforation or abscess without bleeding; G40.909 Epilepsy, unspecified, not intractable, without status epilepticus; I10 Essential (primary) hypertension; M19.90 Unspecified osteoarthritis, unspecified site; G30.9 Alzheimer's disease, unspecified; F02.80 Dementia in other diseases classified elsewhere, unspecified severity, without behavioral disturbance, psychotic disturbance, mood disturbance, and anxiety; Z86.73 Personal history of transient ischemic attack (TIA), and cerebral infarction without residual deficits; Z86.718 Personal history of other venous thrombosis and embolism; Z87.891 Personal history of nicotine dependence

== ENCOUNTER 2017-12-05 13:25 | Outpatient (CLI) | payer MEDICARE ==
[2017-12-05] MEDS ORDERED: XYLOCAINE TOPICAL 4% TP ONE (13:44)
== END 2017-12-05 13:26 | disposition home or self-care (01) ==
LOC: WOUND 13:25
PROVIDERS: ATTEND Internal Medicine
DX: I87.311 Chronic venous hypertension (idiopathic) with ulcer of right lower extremity (principal); L97.812 Non-pressure chronic ulcer of other part of right lower leg with fat layer exposed; G60.9 Hereditary and idiopathic neuropathy, unspecified; I82.401 Acute embolism and thrombosis of unspecified deep veins of right lower extremity; G35 Multiple sclerosis; G40.89 Other seizures; B35.1 Tinea unguium; M19.90 Unspecified osteoarthritis, unspecified site; K21.9 Gastro-esophageal reflux disease without esophagitis; Z86.718 Personal history of other venous thrombosis and embolism; Z86.73 Personal history of transient ischemic attack (TIA), and cerebral infarction without residual deficits; Z87.891 Personal history of nicotine dependence

== ENCOUNTER 2017-12-12 13:29 | Outpatient (CLI) | payer MEDICARE ==
[2017-12-12] MEDS ORDERED: XYLOCAINE TOPICAL 4% TP ONE (13:52)
== END 2017-12-12 13:30 | disposition home or self-care (01) ==
LOC: WOUND 13:29
PROVIDERS: ATTEND Internal Medicine
DX: I87.311 Chronic venous hypertension (idiopathic) with ulcer of right lower extremity (principal); L97.812 Non-pressure chronic ulcer of other part of right lower leg with fat layer exposed; G60.9 Hereditary and idiopathic neuropathy, unspecified; B35.1 Tinea unguium; G35 Multiple sclerosis; I82.401 Acute embolism and thrombosis of unspecified deep veins of right lower extremity; M19.90 Unspecified osteoarthritis, unspecified site; K21.9 Gastro-esophageal reflux disease without esophagitis; G40.909 Epilepsy, unspecified, not intractable, without status epilepticus; G30.9 Alzheimer's disease, unspecified; F02.80 Dementia in other diseases classified elsewhere, unspecified severity, without behavioral disturbance, psychotic disturbance, mood disturbance, and anxiety; Z86.718 Personal history of other venous thrombosis and embolism; Z86.73 Personal history of transient ischemic attack (TIA), and cerebral infarction without residual deficits; Z87.891 Personal history of nicotine dependence

== ENCOUNTER 2017-12-19 13:30 | Outpatient (CLI) | payer MEDICARE ==
[2017-12-19] MEDS ORDERED: XYLOCAINE TOPICAL 4% TP ONE (13:43)
== END 2017-12-19 13:31 | disposition home or self-care (01) ==
LOC: WOUND 13:30
PROVIDERS: ATTEND Internal Medicine
DX: I87.311 Chronic venous hypertension (idiopathic) with ulcer of right lower extremity (principal); L97.812 Non-pressure chronic ulcer of other part of right lower leg with fat layer exposed; G60.9 Hereditary and idiopathic neuropathy, unspecified; B35.1 Tinea unguium; K21.9 Gastro-esophageal reflux disease without esophagitis; M19.90 Unspecified osteoarthritis, unspecified site; G30.9 Alzheimer's disease, unspecified; Z86.718 Personal history of other venous thrombosis and embolism; Z86.73 Personal history of transient ischemic attack (TIA), and cerebral infarction without residual deficits; Z87.891 Personal history of nicotine dependence

== ENCOUNTER 2017-12-26 13:21 | Outpatient (CLI) | payer MEDICARE ==
[2017-12-26] MEDS ORDERED: XYLOCAINE TOPICAL 4% TP ONE ×2 (13:52→16:52)
[2017-12-26] MEDS ORDERED: AD OINTMENT TP ONE (14:07)
[2017-12-27] MEDS ORDERED: AD OINTMENT TP SCH (10:00)
== END 2017-12-26 13:22 | disposition home or self-care (01) ==
LOC: WOUND 13:21
PROVIDERS: ATTEND Internal Medicine
DX: I87.311 Chronic venous hypertension (idiopathic) with ulcer of right lower extremity (principal); L97.812 Non-pressure chronic ulcer of other part of right lower leg with fat layer exposed; I82.401 Acute embolism and thrombosis of unspecified deep veins of right lower extremity; G60.9 Hereditary and idiopathic neuropathy, unspecified; B35.1 Tinea unguium; G35 Multiple sclerosis; G40.89 Other seizures; M19.90 Unspecified osteoarthritis, unspecified site; K21.9 Gastro-esophageal reflux disease without esophagitis; Z86.73 Personal history of transient ischemic attack (TIA), and cerebral infarction without residual deficits; Z86.718 Personal history of other venous thrombosis and embolism; Z87.891 Personal history of nicotine dependence
CPT/HCPCS: A6250

== ENCOUNTER 2018-01-02 13:27 | Outpatient (CLI) | payer MEDICARE ==
[2018-01-02] MEDS ORDERED: XYLOCAINE TOPICAL 2% 5ML ONE (13:39)
[2018-01-02] MEDS ORDERED: XYLOCAINE TOPICAL 2% 5ML TP ONE (13:40)
[2018-01-02] MEDS ORDERED: SODIUM CHLORIDE FLUSH SYRINGE 10 ML IV ONE ×2 (14:18→16:26)
== END 2018-01-02 13:28 | disposition home or self-care (01) ==
LOC: WOUND 13:27
PROVIDERS: ATTEND Internal Medicine
DX: I87.311 Chronic venous hypertension (idiopathic) with ulcer of right lower extremity (principal); L97.812 Non-pressure chronic ulcer of other part of right lower leg with fat layer exposed; G60.9 Hereditary and idiopathic neuropathy, unspecified; B35.1 Tinea unguium; M19.90 Unspecified osteoarthritis, unspecified site; K21.9 Gastro-esophageal reflux disease without esophagitis; G30.9 Alzheimer's disease, unspecified; F02.80 Dementia in other diseases classified elsewhere, unspecified severity, without behavioral disturbance, psychotic disturbance, mood disturbance, and anxiety; Z86.73 Personal history of transient ischemic attack (TIA), and cerebral infarction without residual deficits; Z86.718 Personal history of other venous thrombosis and embolism; Z87.891 Personal history of nicotine dependence
CPT/HCPCS: 15277; Q4158; 29580

== ENCOUNTER 2018-01-09 13:31 | Outpatient (CLI) | payer MEDICARE ==
[2018-01-09] MEDS ORDERED: XYLOCAINE TOPICAL 4% TP ONE ×2 (13:57→14:01)
== END 2018-01-09 13:32 | disposition home or self-care (01) ==
LOC: WOUND 13:31
PROVIDERS: ATTEND Internal Medicine
DX: I87.311 Chronic venous hypertension (idiopathic) with ulcer of right lower extremity (principal); L97.812 Non-pressure chronic ulcer of other part of right lower leg with fat layer exposed; G60.9 Hereditary and idiopathic neuropathy, unspecified; B35.1 Tinea unguium; M19.90 Unspecified osteoarthritis, unspecified site; K21.9 Gastro-esophageal reflux disease without esophagitis; G30.9 Alzheimer's disease, unspecified; F02.80 Dementia in other diseases classified elsewhere, unspecified severity, without behavioral disturbance, psychotic disturbance, mood disturbance, and anxiety; Z86.73 Personal history of transient ischemic attack (TIA), and cerebral infarction without residual deficits; Z86.718 Personal history of other venous thrombosis and embolism; Z87.891 Personal history of nicotine dependence
CPT/HCPCS: 29580

== ENCOUNTER 2018-01-16 13:43 | Outpatient (CLI) | payer MEDICARE ==
[2018-01-16] MEDS ORDERED: XYLOCAINE TOPICAL 4% TP ONE ×2 (13:52→13:54)
== END 2018-01-16 13:44 | disposition home or self-care (01) ==
LOC: WOUND 13:43
PROVIDERS: ATTEND Internal Medicine
DX: I87.311 Chronic venous hypertension (idiopathic) with ulcer of right lower extremity (principal); L97.812 Non-pressure chronic ulcer of other part of right lower leg with fat layer exposed; G60.9 Hereditary and idiopathic neuropathy, unspecified; B35.1 Tinea unguium; M19.90 Unspecified osteoarthritis, unspecified site; K21.9 Gastro-esophageal reflux disease without esophagitis; G40.909 Epilepsy, unspecified, not intractable, without status epilepticus; G30.9 Alzheimer's disease, unspecified; F02.80 Dementia in other diseases classified elsewhere, unspecified severity, without behavioral disturbance, psychotic disturbance, mood disturbance, and anxiety; Z86.73 Personal history of transient ischemic attack (TIA), and cerebral infarction without residual deficits; Z86.718 Personal history of other venous thrombosis and embolism; Z87.891 Personal history of nicotine dependence
CPT/HCPCS: 29580

== ENCOUNTER 2018-01-23 13:31 | Outpatient (CLI) | payer MEDICARE ==
[2018-01-23] MEDS ORDERED: XYLOCAINE TOPICAL 4% TP ONE ×2 (13:55→14:08)
[2018-01-23] MEDS ORDERED: SODIUM CHLORIDE FLUSH SYRINGE 10 ML IV ONE (14:09)
== END 2018-01-23 13:32 | disposition home or self-care (01) ==
LOC: WOUND 13:31
PROVIDERS: ATTEND Internal Medicine
DX: I87.311 Chronic venous hypertension (idiopathic) with ulcer of right lower extremity (principal); L97.812 Non-pressure chronic ulcer of other part of right lower leg with fat layer exposed
CPT/HCPCS: 15277; 29580; Q4158

== ENCOUNTER 2018-01-30 13:43 | Outpatient (CLI) | payer MEDICARE ==
[2018-01-30] MEDS ORDERED: XYLOCAINE TOPICAL 4% TP ONE ×2 (14:02→14:04)
== END 2018-01-30 13:44 | disposition home or self-care (01) ==
LOC: WOUND 13:43
PROVIDERS: ATTEND Internal Medicine
DX: L97.812 Non-pressure chronic ulcer of other part of right lower leg with fat layer exposed (principal); I87.311 Chronic venous hypertension (idiopathic) with ulcer of right lower extremity; G60.9 Hereditary and idiopathic neuropathy, unspecified; B35.1 Tinea unguium; K21.9 Gastro-esophageal reflux disease without esophagitis; M19.90 Unspecified osteoarthritis, unspecified site; G30.9 Alzheimer's disease, unspecified; Z86.718 Personal history of other venous thrombosis and embolism; Z87.891 Personal history of nicotine dependence
CPT/HCPCS: 29580

== ENCOUNTER 2018-02-06 13:34 | Outpatient (CLI) | payer MEDICARE | END 2018-02-06 13:35 | disposition home or self-care (01) | LOC: WOUND 13:34 | PROVIDERS: ATTEND Internal Medicine | DX: I87.311 Chronic venous hypertension (idiopathic) with ulcer of right lower extremity (principal); L97.812 Non-pressure chronic ulcer of other part of right lower leg with fat layer exposed; I82.401 Acute embolism and thrombosis of unspecified deep veins of right lower extremity; G35 Multiple sclerosis; G60.9 Hereditary and idiopathic neuropathy, unspecified; B35.1 Tinea unguium; M19.90 Unspecified osteoarthritis, unspecified site; K21.9 Gastro-esophageal reflux disease without esophagitis; G40.909 Epilepsy, unspecified, not intractable, without status epilepticus; G30.9 Alzheimer's disease, unspecified; F02.80 Dementia in other diseases classified elsewhere, unspecified severity, without behavioral disturbance, psychotic disturbance, mood disturbance, and anxiety; Z87.891 Personal history of nicotine dependence; Z86.73 Personal history of transient ischemic attack (TIA), and cerebral infarction without residual deficits | CPT/HCPCS: 29580 ==

== ENCOUNTER 2018-02-13 13:25 | Outpatient (CLI) | payer MEDICARE ==
[2018-02-13] MEDS ORDERED: XYLOCAINE TOPICAL 2% 5ML ONE (13:43)
== END 2018-02-13 13:26 | disposition home or self-care (01) ==
LOC: WOUND 13:25
PROVIDERS: ATTEND Internal Medicine
DX: I87.311 Chronic venous hypertension (idiopathic) with ulcer of right lower extremity (principal); L97.812 Non-pressure chronic ulcer of other part of right lower leg with fat layer exposed; G60.9 Hereditary and idiopathic neuropathy, unspecified; B35.1 Tinea unguium; M19.90 Unspecified osteoarthritis, unspecified site; K21.9 Gastro-esophageal reflux disease without esophagitis; G30.9 Alzheimer's disease, unspecified; Z86.73 Personal history of transient ischemic attack (TIA), and cerebral infarction without residual deficits; Z86.718 Personal history of other venous thrombosis and embolism; Z87.891 Personal history of nicotine dependence
CPT/HCPCS: 29580

== ENCOUNTER 2018-02-22 13:23 | Outpatient (CLI) | payer MEDICARE | END 2018-02-22 13:24 | disposition home or self-care (01) | LOC: WOUND 13:23 | PROVIDERS: ATTEND Nurse Practitioner | DX: I87.311 Chronic venous hypertension (idiopathic) with ulcer of right lower extremity (principal); L97.812 Non-pressure chronic ulcer of other part of right lower leg with fat layer exposed; G60.9 Hereditary and idiopathic neuropathy, unspecified; B35.1 Tinea unguium; G35 Multiple sclerosis; G40.89 Other seizures; M19.90 Unspecified osteoarthritis, unspecified site; K21.9 Gastro-esophageal reflux disease without esophagitis; Z86.73 Personal history of transient ischemic attack (TIA), and cerebral infarction without residual deficits; Z86.718 Personal history of other venous thrombosis and embolism; Z87.891 Personal history of nicotine dependence | CPT/HCPCS: 99212; 99213; G0463 ==

== ENCOUNTER 2019-04-12 10:24 | Outpatient (CLI) | payer MEDICARE ==
[2019-04-12] MEDS ORDERED: XYLOCAINE TOPICAL 4% TP ONE (11:00)
[2019-04-13] MEDS ORDERED: AD OINTMENT TP SCH (11:00)
== END 2019-04-12 10:25 | disposition home or self-care (01) ==
LOC: WOUND 10:24
PROVIDERS: ATTEND Surgery
DX: I87.311 Chronic venous hypertension (idiopathic) with ulcer of right lower extremity (principal); I70.233 Atherosclerosis of native arteries of right leg with ulceration of ankle; L97.312 Non-pressure chronic ulcer of right ankle with fat layer exposed; I87.8 Other specified disorders of veins; K21.9 Gastro-esophageal reflux disease without esophagitis; M19.90 Unspecified osteoarthritis, unspecified site; G30.9 Alzheimer's disease, unspecified; F02.80 Dementia in other diseases classified elsewhere, unspecified severity, without behavioral disturbance, psychotic disturbance, mood disturbance, and anxiety; G40.909 Epilepsy, unspecified, not intractable, without status epilepticus; Z86.73 Personal history of transient ischemic attack (TIA), and cerebral infarction without residual deficits; Z86.718 Personal history of other venous thrombosis and embolism; Z87.891 Personal history of nicotine dependence
CPT/HCPCS: 11042; G0463; 99215

== ENCOUNTER 2019-04-18 11:04 | Outpatient (CLI) | payer MEDICARE ==
[2019-04-18] MEDS ORDERED: XYLOCAINE TOPICAL 4% TP ONE (11:30)
[2019-04-19] MEDS ORDERED: AD OINTMENT TP SCH (10:00)
== END 2019-04-18 11:05 | disposition home or self-care (01) ==
LOC: WOUND 11:04
PROVIDERS: ATTEND Surgery
DX: I87.311 Chronic venous hypertension (idiopathic) with ulcer of right lower extremity (principal); I70.233 Atherosclerosis of native arteries of right leg with ulceration of ankle; L97.312 Non-pressure chronic ulcer of right ankle with fat layer exposed; I87.8 Other specified disorders of veins; K21.9 Gastro-esophageal reflux disease without esophagitis; M19.90 Unspecified osteoarthritis, unspecified site; G30.9 Alzheimer's disease, unspecified; F02.80 Dementia in other diseases classified elsewhere, unspecified severity, without behavioral disturbance, psychotic disturbance, mood disturbance, and anxiety; G40.909 Epilepsy, unspecified, not intractable, without status epilepticus; Z86.73 Personal history of transient ischemic attack (TIA), and cerebral infarction without residual deficits; Z86.718 Personal history of other venous thrombosis and embolism; Z87.891 Personal history of nicotine dependence

== ENCOUNTER 2019-04-25 11:03 | Outpatient (CLI) | payer MEDICARE ==
[2019-04-25] MEDS ORDERED: XYLOCAINE TOPICAL 4% TP ONE (11:30)
== END 2019-04-25 11:04 | disposition home or self-care (01) ==
LOC: WOUND 11:03
PROVIDERS: ATTEND Surgery
DX: I70.233 Atherosclerosis of native arteries of right leg with ulceration of ankle (principal); I87.311 Chronic venous hypertension (idiopathic) with ulcer of right lower extremity; L97.312 Non-pressure chronic ulcer of right ankle with fat layer exposed; K21.9 Gastro-esophageal reflux disease without esophagitis; G40.909 Epilepsy, unspecified, not intractable, without status epilepticus; M19.90 Unspecified osteoarthritis, unspecified site; I87.8 Other specified disorders of veins; G30.9 Alzheimer's disease, unspecified; F02.80 Dementia in other diseases classified elsewhere, unspecified severity, without behavioral disturbance, psychotic disturbance, mood disturbance, and anxiety; Z86.718 Personal history of other venous thrombosis and embolism; Z87.891 Personal history of nicotine dependence

== ENCOUNTER 2019-05-02 11:05 | Outpatient (CLI) | payer MEDICARE | END 2019-05-02 11:06 | disposition home or self-care (01) | LOC: WOUND 11:05 | PROVIDERS: ATTEND Surgery | DX: I70.233 Atherosclerosis of native arteries of right leg with ulceration of ankle (principal); I87.311 Chronic venous hypertension (idiopathic) with ulcer of right lower extremity; L97.312 Non-pressure chronic ulcer of right ankle with fat layer exposed; K21.9 Gastro-esophageal reflux disease without esophagitis; G40.909 Epilepsy, unspecified, not intractable, without status epilepticus; M19.90 Unspecified osteoarthritis, unspecified site; I87.8 Other specified disorders of veins; G30.9 Alzheimer's disease, unspecified; F02.80 Dementia in other diseases classified elsewhere, unspecified severity, without behavioral disturbance, psychotic disturbance, mood disturbance, and anxiety; Z86.718 Personal history of other venous thrombosis and embolism; Z87.891 Personal history of nicotine dependence ==

== ENCOUNTER 2019-05-09 10:48 | Outpatient (CLI) | payer MEDICARE | END 2019-05-09 10:49 | disposition home or self-care (01) | LOC: WOUND 10:48 | PROVIDERS: ATTEND Surgery | DX: I70.233 Atherosclerosis of native arteries of right leg with ulceration of ankle (principal); I87.311 Chronic venous hypertension (idiopathic) with ulcer of right lower extremity; L97.312 Non-pressure chronic ulcer of right ankle with fat layer exposed; I87.8 Other specified disorders of veins; K21.9 Gastro-esophageal reflux disease without esophagitis; G40.909 Epilepsy, unspecified, not intractable, without status epilepticus; M19.90 Unspecified osteoarthritis, unspecified site; G30.9 Alzheimer's disease, unspecified; F02.80 Dementia in other diseases classified elsewhere, unspecified severity, without behavioral disturbance, psychotic disturbance, mood disturbance, and anxiety; Z86.718 Personal history of other venous thrombosis and embolism; Z86.73 Personal history of transient ischemic attack (TIA), and cerebral infarction without residual deficits; Z87.891 Personal history of nicotine dependence ==

== ENCOUNTER 2019-05-15 09:37 | Outpatient (CLI) | payer MEDICARE ==
[2019-05-15] MEDS ORDERED: XYLOCAINE TOPICAL 4% TP ONE (10:00)
[2019-05-15] MEDS ORDERED: SILVER NITRATE TP ONE (10:00)
== END 2019-05-15 09:38 | disposition home or self-care (01) ==
LOC: WOUND 09:37
PROVIDERS: ATTEND Surgery
DX: I70.233 Atherosclerosis of native arteries of right leg with ulceration of ankle (principal); I87.311 Chronic venous hypertension (idiopathic) with ulcer of right lower extremity; L97.312 Non-pressure chronic ulcer of right ankle with fat layer exposed; I87.8 Other specified disorders of veins; K21.9 Gastro-esophageal reflux disease without esophagitis; G40.909 Epilepsy, unspecified, not intractable, without status epilepticus; M19.90 Unspecified osteoarthritis, unspecified site; G30.9 Alzheimer's disease, unspecified; F02.80 Dementia in other diseases classified elsewhere, unspecified severity, without behavioral disturbance, psychotic disturbance, mood disturbance, and anxiety; Z86.718 Personal history of other venous thrombosis and embolism; Z86.73 Personal history of transient ischemic attack (TIA), and cerebral infarction without residual deficits; Z87.891 Personal history of nicotine dependence

== ENCOUNTER 2019-05-30 11:25 | Outpatient (CLI) | payer MEDICARE ==
[2019-05-30] MEDS ORDERED: XYLOCAINE TOPICAL 4% TP ONE (12:00)
== END 2019-05-30 11:26 | disposition home or self-care (01) ==
LOC: WOUND 11:25
PROVIDERS: ATTEND Surgery
DX: I70.233 Atherosclerosis of native arteries of right leg with ulceration of ankle (principal); I87.311 Chronic venous hypertension (idiopathic) with ulcer of right lower extremity; L97.312 Non-pressure chronic ulcer of right ankle with fat layer exposed; I87.8 Other specified disorders of veins; K21.9 Gastro-esophageal reflux disease without esophagitis; G40.909 Epilepsy, unspecified, not intractable, without status epilepticus; M19.90 Unspecified osteoarthritis, unspecified site; G30.9 Alzheimer's disease, unspecified; F02.80 Dementia in other diseases classified elsewhere, unspecified severity, without behavioral disturbance, psychotic disturbance, mood disturbance, and anxiety; Z86.718 Personal history of other venous thrombosis and embolism; Z86.73 Personal history of transient ischemic attack (TIA), and cerebral infarction without residual deficits; Z87.891 Personal history of nicotine dependence

== ENCOUNTER 2019-06-06 11:02 | Outpatient (CLI) | payer MEDICARE | END 2019-06-06 11:03 | disposition home or self-care (01) | LOC: WOUND 11:02 | PROVIDERS: ATTEND Surgery | DX: I70.233 Atherosclerosis of native arteries of right leg with ulceration of ankle (principal); I87.311 Chronic venous hypertension (idiopathic) with ulcer of right lower extremity; L97.312 Non-pressure chronic ulcer of right ankle with fat layer exposed; I87.8 Other specified disorders of veins; K21.9 Gastro-esophageal reflux disease without esophagitis; G40.909 Epilepsy, unspecified, not intractable, without status epilepticus; M19.90 Unspecified osteoarthritis, unspecified site; G30.9 Alzheimer's disease, unspecified; F02.80 Dementia in other diseases classified elsewhere, unspecified severity, without behavioral disturbance, psychotic disturbance, mood disturbance, and anxiety; Z86.718 Personal history of other venous thrombosis and embolism; Z86.73 Personal history of transient ischemic attack (TIA), and cerebral infarction without residual deficits; Z87.891 Personal history of nicotine dependence ==

== ENCOUNTER 2019-06-13 10:53 | Outpatient (CLI) | payer MEDICARE | END 2019-06-13 10:54 | disposition home or self-care (01) | LOC: WOUND 10:53 | PROVIDERS: ATTEND Surgery | DX: I70.233 Atherosclerosis of native arteries of right leg with ulceration of ankle (principal); I87.311 Chronic venous hypertension (idiopathic) with ulcer of right lower extremity; L97.312 Non-pressure chronic ulcer of right ankle with fat layer exposed; I87.8 Other specified disorders of veins; K21.9 Gastro-esophageal reflux disease without esophagitis; G40.909 Epilepsy, unspecified, not intractable, without status epilepticus; M19.90 Unspecified osteoarthritis, unspecified site; G30.9 Alzheimer's disease, unspecified; F02.80 Dementia in other diseases classified elsewhere, unspecified severity, without behavioral disturbance, psychotic disturbance, mood disturbance, and anxiety; Z86.718 Personal history of other venous thrombosis and embolism; Z86.73 Personal history of transient ischemic attack (TIA), and cerebral infarction without residual deficits; Z87.891 Personal history of nicotine dependence ==

== ENCOUNTER 2019-06-20 10:59 | Outpatient (CLI) | payer MEDICARE | END 2019-06-20 11:00 | disposition home or self-care (01) | LOC: WOUND 10:59 | PROVIDERS: ATTEND Surgery | DX: I70.233 Atherosclerosis of native arteries of right leg with ulceration of ankle (principal); I87.311 Chronic venous hypertension (idiopathic) with ulcer of right lower extremity; L97.312 Non-pressure chronic ulcer of right ankle with fat layer exposed; I87.8 Other specified disorders of veins; K21.9 Gastro-esophageal reflux disease without esophagitis; G40.909 Epilepsy, unspecified, not intractable, without status epilepticus; M19.90 Unspecified osteoarthritis, unspecified site; G30.9 Alzheimer's disease, unspecified; F02.80 Dementia in other diseases classified elsewhere, unspecified severity, without behavioral disturbance, psychotic disturbance, mood disturbance, and anxiety; Z86.718 Personal history of other venous thrombosis and embolism; Z86.73 Personal history of transient ischemic attack (TIA), and cerebral infarction without residual deficits; Z87.891 Personal history of nicotine dependence ==

== ENCOUNTER 2019-06-27 10:57 | Outpatient (CLI) | payer MEDICARE ==
[2019-06-27] MEDS ORDERED: XYLOCAINE TOPICAL 4% TP ONE (11:30)
== END 2019-06-27 10:58 | disposition home or self-care (01) ==
LOC: WOUND 10:57
PROVIDERS: ATTEND Surgery
DX: I70.233 Atherosclerosis of native arteries of right leg with ulceration of ankle (principal); I87.311 Chronic venous hypertension (idiopathic) with ulcer of right lower extremity; L97.312 Non-pressure chronic ulcer of right ankle with fat layer exposed; I87.8 Other specified disorders of veins; K21.9 Gastro-esophageal reflux disease without esophagitis; G40.909 Epilepsy, unspecified, not intractable, without status epilepticus; M19.90 Unspecified osteoarthritis, unspecified site; G30.9 Alzheimer's disease, unspecified; F02.80 Dementia in other diseases classified elsewhere, unspecified severity, without behavioral disturbance, psychotic disturbance, mood disturbance, and anxiety; Z86.718 Personal history of other venous thrombosis and embolism; Z86.73 Personal history of transient ischemic attack (TIA), and cerebral infarction without residual deficits; Z87.891 Personal history of nicotine dependence

== ENCOUNTER 2019-07-04 10:49 | Outpatient (CLI) | payer MEDICARE ==
[2019-07-04] MEDS ORDERED: XYLOCAINE TOPICAL 4% TP ONE (11:30)
== END 2019-07-04 10:50 | disposition home or self-care (01) ==
LOC: WOUND 10:49
PROVIDERS: ATTEND Surgery
DX: I70.233 Atherosclerosis of native arteries of right leg with ulceration of ankle (principal); I87.311 Chronic venous hypertension (idiopathic) with ulcer of right lower extremity; L97.312 Non-pressure chronic ulcer of right ankle with fat layer exposed; I87.8 Other specified disorders of veins; K21.9 Gastro-esophageal reflux disease without esophagitis; G40.909 Epilepsy, unspecified, not intractable, without status epilepticus; M19.90 Unspecified osteoarthritis, unspecified site; G30.9 Alzheimer's disease, unspecified; F02.80 Dementia in other diseases classified elsewhere, unspecified severity, without behavioral disturbance, psychotic disturbance, mood disturbance, and anxiety; Z86.718 Personal history of other venous thrombosis and embolism; Z86.73 Personal history of transient ischemic attack (TIA), and cerebral infarction without residual deficits; Z87.891 Personal history of nicotine dependence

== ENCOUNTER 2019-07-11 11:07 | Outpatient (CLI) | payer MEDICARE ==
[2019-07-11] MEDS ORDERED: XYLOCAINE TOPICAL 4% TP ONE (12:27)
== END 2019-07-11 11:08 | disposition home or self-care (01) ==
LOC: WOUND 11:07
PROVIDERS: ATTEND Surgery
DX: I70.233 Atherosclerosis of native arteries of right leg with ulceration of ankle (principal); I87.311 Chronic venous hypertension (idiopathic) with ulcer of right lower extremity; L97.312 Non-pressure chronic ulcer of right ankle with fat layer exposed; I87.8 Other specified disorders of veins; K21.9 Gastro-esophageal reflux disease without esophagitis; G40.909 Epilepsy, unspecified, not intractable, without status epilepticus; M19.90 Unspecified osteoarthritis, unspecified site; G30.9 Alzheimer's disease, unspecified; F02.80 Dementia in other diseases classified elsewhere, unspecified severity, without behavioral disturbance, psychotic disturbance, mood disturbance, and anxiety; Z86.718 Personal history of other venous thrombosis and embolism; Z86.73 Personal history of transient ischemic attack (TIA), and cerebral infarction without residual deficits; Z87.891 Personal history of nicotine dependence
CPT/HCPCS: 11042; G0463; 99212